=== PATIENT | female | born 1955 | race Two or more races ===

== ENCOUNTER 2022-08-02 14:01 | Emergency (ER) | payer MEDICAID ==
[2022-08-02] MEDS ORDERED: ACET-1158 PO (20:58)
[2022-08-02] MEDS ORDERED: CEPH-510 PO (20:58)
[2022-08-02] MEDS ORDERED: CLIN300C8 PO (20:58)
[2022-08-02] MEDS ORDERED: cefTRIAXone SOD 1,000 MG VL IM ONE (21:00)
[2022-08-02 21:39] VITALS: BP 119/69
== END 2022-08-02 21:39 | disposition home or self-care (01) ==
LOC: ER 14:01
DX: L03.113 Cellulitis of right upper limb (principal); Z90.49 Acquired absence of other specified parts of digestive tract
CPT/HCPCS: 96372; 99283; J0696

== ENCOUNTER 2025-03-08 11:50 | Emergency (ER) | payer MEDICAID ==
[~2025-03-08] VITALS: Ht 152.4 cm; Wt 68.6 kg
[~2025-03-08 11:50] MED LIST: ACET500T58 PO; CEPH-510 PO; CLIN1CAP70 PO
--- NOTE | 2025-03-08 12:20 | ED.PDOC ---
HPI Comments Patient is a 69-year-old female with a any significant past medical history presented to the ED with a chief complaint of chest pain that started few hours ago in the morning today. Patient reports she was getting dressed up when she started to have sudden onset chest pressure in the substernal region, nonradiating, associated with the mild shortness of breath and sweating. Patient denied any history of smoking, type 2 diabetes mellitus, hypertension, no significant family history of coronary artery disease. She was fine until today morning it does not report any recent surgical history, no immobilization. Chief Complaint: Chest Pain Time Seen by MD: 12:00 Reviewed Notes: Nurses Notes, Medications, Allergies Allergies: Uncoded Allergies: PENICILLIN (Allergy, Intermediate, 03/08/25) Home Meds Active Scripts Acetaminophen (Acetaminophen) 500 Mg Tab, 500 MG PO QIDP, #30 TAB 0 Refills Prov:WILY SMITH 08/02/22 Clindamycin Hcl (Clindamycin Hcl) 300 Mg Cap, 1 CAP PO TID for 7 Days, #21 CAP 0 Refills Prov:WILY SMITH 08/02/22 Cephalexin ( Keflex 500) 500 Mg Cap, 1 CAP PO BID for 7 Days, #14 CAP 0 Refills Prov:WILY SMITH 08/02/22 Information Source: Patient Past Medical History PAST MEDICAL HISTORY: High Lipids Surgical History: Cholecystectomy 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 CLAIMS VICE PRESIDENT History Family History Family History: Unknown Social History Smoker: Non-Smoker Alcohol: Denies ETOH Use Drugs: Denies Drug Use Lives In: Home Constitutional: reports: diaphoresis EENTM: denies: blurred vision, double vision, ear bleeding, ear discharge, ear drainage, ear pain, ear ringing, eye pain, eye redness, hearing loss, mouth pain, mouth swelling, nasal discharge, nose bleeding, nose congestion, nose pain, photophobia, tearing, throat pain, throat swelling, voice changes, others Respiratory: denies: cough, hemoptysis, orthopnea, SOB at rest, shortness of breath, SOB with excertion, stridor, wheezing, others Cardiovascular: reports: chest pain Gastrointestinal: reports: nausea, others (Acidity, heartburn) Genitourinary: denies: abnormal vagina bleeding, burning, dyspareunia, dysuria, flank pain, frequency, hematuria, incontinence, pain, , vagina discharge, urgency, others Neurological: denies: dizziness, fainting, headache, left sided numbness, left sided weakness, numbness, paresthesia, pre-existing deficit, right sided numbness, right sided weakness, seizure, speech problems, tingling, tremors, weakness, others Musculoskeletal: denies: back pain, gout, joint pain, joint swelling, muscle pain, muscle stiffness, neck pain, others Integumetry: denies: bruises, change in color, change in hair/nails, dryness, laceration, lesions, lumps, rash, wounds, others Allergic/Immunocompromised: denies: Difficulty Healing, Frequent Infections, Hives, Itching, others Hematologic/Lymphatic: denies: anemia, blood clots, easy bleeding, easy bruising, swollen glands, others Endocrine: denies: excessive hunger, excessive sweating, excessive thirst, excessive urination, flushing, intolerance to cold, intolerance to heat, unexplained weight gain, unexplained weight loss, others Psychiatric: denies: anxiety, bipolar disorder, depression, hopeless, panic disorder, schizophrenia, sleepless, suicidal, others Physical Exam General Appearance: Mild Distress HEENT: Normal ENT Inspection, Pharynx Normal, TMs Normal Neck: Full Range of Motion, Non-Tender, Normal Inspection Respiratory: Lungs Clear, No Accessory Muscle Use Cardiovascular: No Edema, No JVD, No Murmur, Normal Peripheral Pulses, Regular Rate/Rhythm Breast Exam: Deferred Gastrointestinal: No Organomegaly, Non Tender, No Pulsatile Mass, Normal Bowel Sounds, Soft Genitalia: Deferred Pelvic: Deferred Rectal: Deferred Extremities: Normal inspection, Normal range of motion, Non-tender, No pedal edema 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 Was a procedure done?: No CP Differential Dx Differential Diagnosis: Other Differential Diagnosis: Aortic dissection, Chest Wall Pain, Costochondritis, Esophageal reflux/spasm, Gastritis X-Ray, Labs, Meds, VS Vital Signs Date Time Temp Pulse Resp B/P (MAP) Pulse Ox O2 Delivery O2 Flow Rate FiO2 03/08/25 13:43 63 18 97 Room Air 03/08/25 13:43 98.1 63 18 150/74 (99) 97 98.1 03/08/25 13:17 74 03/08/25 13:13 64 03/08/25 12:14 98.6 64 16 133/62 (85) 94 98.6 03/08/25 11:52 61 Lab Test 03/08/25 12:38 03/08/25 12:14 03/08/25 12:13 03/08/25 11:48 Range/Units Troponin I High Sensitivity < 3 L < 3 L </=34 ng/L White Blood Count 8.7 4.4-10.8 10^3/uL Red Blood Count 4.26 4.0-5.20 10^6/uL Hemoglobin 12.9 12.2-16.2 g/dL Hematocrit 38.2 36.0-46.0 % Mean Corpuscular Volume 89.7 80.0-100.0 fL Mean Corpuscular Hemoglobin 30.2 28.0-32.0 pg Mean Corpuscular Hemoglobin Concent 33.7 32.0-36.0 g/dL Red Cell Distribution Width 15.3 H 11.8-14.3 % Platelet Count 282 140-450 10^3/uL Mean Platelet Volume 8.6 6.9-10.8 fL Neutrophils (%) (Auto) 55.4 37.0-80.0 % Lymphocytes (%) (Auto) 33.3 10.0-50.0 % Monocytes (%) (Auto) 10.5 0.0-12.0 % Eosinophils (%) (Auto) 0.2 0.0-7.0 % Basophils (%) (Auto) 0.6 0.0-2.0 % Neutrophils # (Auto) 4.8 1.6-8.6 10 ^3/uL Lymphocytes # (Auto) 2.9 0.4-5.4 10 ^3/uL Monocytes # (Auto) 0.9 0-1.3 10 ^3/uL Eosinophils # (Auto) 0 0-0.8 10 ^3/uL Basophils # (Auto) 0.1 0-0.2 10 ^3/uL Nucleated Red Blood Cells 0.2 % Sodium Level 139 136-145 mmol/L Potassium Level 4.1 3.5-5.1 mmol/L Chloride Level 106 98-107 mmol/L Carbon Dioxide Level 25 20-31 mmol/L Anion Gap 8 5-15 Blood Urea Nitrogen 15 9-23 mg/dL Creatinine 0.81 0.550-1.02 mg/dL Glomerular Filtration Rate Calc 78 >90 mL/min BUN/Creatinine Ratio 18.5 10.0-20.0 Serum Glucose 94 74-106 mg/dL Calcium Level 9.1 8.7-10.4 mg/dL Urine Color Yellow Yellow Urine Clarity Clear Clear Urine pH 6.5 5.0-9.0 Urine Specific [place] 1.011 1.001-1.035 Urine Protein Negative Negative Urine Ketones Negative Negative Urine Blood Negative Negative /uL Urine Nitrite Negative Negative Urine Bilirubin Negative Negative Urine Urobilinogen Normal Negative mg/dL Urine Leukocyte Esterase Negative Negative /uL Urine RBC 1 0 - 4 /hpf Urine Microscopic WBC < 1 0-5 /HPF Urine Squamous Epithelial Cells None seen <5 /hpf Urine Bacteria Few H None Seen /hpf Urine Glucose Normal Normal mg/dL Current Medications Medications (Trade) Dose Ordered Sig/Yovani Route Start Time Stop Time Status Last Admin Aspirin 325 mg ONCE ONCE PO 03/08/25 12:15 03/08/25 12:18 DC 03/08/25 13:54 Pantoprazole Sodium (Protonix) 40 mg ONCE ONCE IV 03/08/25 12:15 03/08/25 12:18 DC 03/08/25 13:55 Sucralfate (Carafate Susp) 1 gm ONCE ONCE PO 03/08/25 12:15 03/08/25 12:19 DC 03/08/25 13:54 Patient is 69-year-old female with past medical history of hyperlipidemia presented to the ED with chest pain which was substernal, nonradiating, associated nausea and sweating. Twelve lead ECG was done which showed no acute ST segment or T-wave changes and troponin levels were within normal limits. Patient had tenderness on chest wall and reported of acidity and nausea. Patient was given Protonix and Carafate following which she got mild relief. Chest x-ray did not show any acute cardiopulmonary or osseous abnormality She denied any history of hypertension, diabetes, smoking, no significant family history. Patient was advised to follow up with her PCP and outpatient c ardiology follow up for further risk stratification. Time of 1ST Reevaluation: 14:10 (Patient reported that the chest pain improved following Protonix and Carafate) Reevaluation 1ST: Improved Patient Education/Counseling: Diagnosis, Treatment Family Education/Counseling: No Family Present SEPSIS Sepsis Screen Physician Orders Electrocardigram (03/08/25 12:10) Electrocardigram (03/08/25 13:10) Electrocardigram (03/08/25 15:10) Chest Xray 1 View (03/08/25 12:14) Saline Lock (03/08/25 12:58) Vital Signs Date Time Temp Pulse Resp B/P (MAP) Pulse Ox O2 Delivery O2 Flow Rate FiO2 03/08/25 13:43 63 18 97 Room Air 03/08/25 13:43 98.1 63 18 150/74 (99) 97 98.1 03/08/25 13:17 74 03/08/25 13:13 64 03/08/25 12:14 98.6 64 16 133/62 (85) 94 98.6 03/08/25 11:52 61 Laboratory Tests Test 03/08/25 12:14 White Blood Count 8.7 10^3/uL (4.4-10.8) Medications Medications Dose Ordered Sig/Yovani Route Start Time Stop Time Status Last Admin Dose Admin Aspirin 325 mg ONCE ONCE PO 03/08/25 12:15 03/08/25 12:18 DC 03/08/25 13:54 Pantoprazole Sodium 40 mg ONCE ONCE IV 03/08/25 12:15 03/08/25 12:18 DC 03/08/25 13:55 Sucralfate 1 gm ONCE ONCE PO 03/08/25 12:15 03/08/25 12:19 DC 03/08/25 13:54 Departure 1 Departure Time of Disposition: 15:16 Impression: Primary Impression: Musculoskeletal chest pain Additional Impressions: Acute gastritis GERD (gastroesophageal reflux disease) Disposition: 01 HOME / SELF CARE / HOMELESS Condition: Stable Critical Care Note Critical Care Time?: No Stability Stability form required: No Heart Score Heart Score: Heart Score Response (Comments) Value History Slightly Suspicious 0 EKG Normal 0 Age >65 2 Risk Factors No known risk factors 0 Troponin Normal limit 0 Total 2 MINDA CONTE RESIDENT Mar 08, 2025 12:20
--- NOTE | 2025-03-08 12:48 | DVH ---
EXAM: XY CHEST XRAY 1 VIEW HISTORY: left ant chest wall pain COMPARISON: None TECHNIQUE: Portable upright AP view of the chest was performed. FINDINGS: No pneumothorax, consolidative infiltrates, or pulmonary edema. The heart is not enlarged. IMPRESSION: No acute intrathoracic process.
[2025-03-08 13:22] LABS: Hematocrit 38.2 % (36.0-46.0); Hemoglobin 12.9 g/dL (12.2-16.2); Mean Corpuscular Hemoglobin 30.2 pg (28.0-32.0); Mean Corpuscular Volume 89.7 fL (80.0-100.0); Nucleated Red Blood Cells % 0.2 %
[2025-03-08 13:40] LABS: Chloride 106 mmol/L (98-107); Potassium 4.1 mmol/L (3.5-5.1); Sodium 139 mmol/L (136-145)
[2025-03-08 13:41] LABS: Anion Gap 8 (5-15); Calcium 9.1 mg/dL (8.7-10.4); Carbon Dioxide 25 mmol/L (20-31)
[2025-03-08 13:43] LABS: Urine Protein, UAD Negative (Negative)
[2025-03-08 13:46] LABS: BUN/Creatinine Ratio 18.5 (10.0-20.0); Blood Urea Nitrogen 15 mg/dL (9-23); Glucose 94 mg/dL (74-106)
[2025-03-08] MEDS: SUCRALFATE 1 GM/10 ML ORAL SUSP PO ONE (13:54)
[2025-03-08] MEDS: PANTOPRAZOLE 40 MG/10 ML VIAL INJ IV ONE (13:55)
[2025-03-08] MEDS ORDERED: SUCR1SUS5 PO (15:18)
[2025-03-08] MEDS ORDERED: PANT40TA2 PO (15:18)
[2025-03-08 15:43] VITALS: BP 122/82; PULSE 66; RESP 15; TEMP 97.8; O2SAT 98
--- NOTE | 2025-03-12 08:40 | ECG ---
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
--- NOTE | 2025-03-12 13:31 | ECG ---
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
--- NOTE | 2025-03-19 11:05 | ECG ---
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
== END 2025-03-08 15:48 | disposition home or self-care (01) ==
LOC: ER 11:50
DX: R07.89 Other chest pain (principal); K21.9 Gastro-esophageal reflux disease without esophagitis; K29.00 Acute gastritis without bleeding; E78.5 Hyperlipidemia, unspecified; Z90.49 Acquired absence of other specified parts of digestive tract; Z88.0 Allergy status to penicillin; Z79.899 Other long term (current) drug therapy
CPT/HCPCS: 36415; 71045; 80048; 81001; 84484; 85025; 93005; 96374; 99285; J2470